=== PATIENT | male | born 1940 | race Caucasian/White ===

== ENCOUNTER 2020-04-03 11:34 | Outpatient (CLI) | payer OTHER, SELFPAY ==
--- NOTE | ~2020-04-03 | XR_ITS ---
EXAMINATION: XR hand BI arthritis min 3V DATE: 04/03/2020 12:12 INDICATION: Rheumatoid arthritis with rheumatoid factor of multiple sites. TECHNIQUE: 4 views of right hand and 4 views of left hand on a total of 7 radiographs were obtained. COMPARISON: None. FINDINGS: RIGHT HAND: There is palmar subluxation of second and third proximal phalanges with respect to the me tacarpals. There is palmar dislocation of third-fifth proximal phalanges with respect to the metacarp als. There is radial subluxation of second and fourth distal phalanges with respect to the middle pha langes. There is abnormal flexion of fourth distal interphalangeal joint. There is scapholunate disso ciation. There are erosions of the distal radioulnar joint and radiocarpal joint with severe joint sp robert narrowing of radioscaphoid joint. There is proximal migration of capitate between lunate and scap hoid. Capitate articulates with the distal radius. 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 A lytic lesion in base of second metacarpal may be a subchondral cyst or erosion. There are osteophyt es at all of the metacarpophalangeal joints. There is severe osteoarthritis of second and fourth dist al interphalangeal joints and mild to moderate osteoarthritis of the other interphalangeal joints. LEFT HAND: There is palmar subluxation of the first-fifth proximal phalanges with respect to the meta carpals. There is radial subluxation of third and fourth distal phalanges with respect to the middle phalanges. There is moderate osteoarthritis of distal radioulnar joint. There is severe joint space n arrowing at radiolunate joint. There is severe osteoarthritis of first carpometacarpal joint. There a re osteophytes at all the metacarpophalangeal joints. There is severe osteoarthritis of third and fou rth distal interphalangeal joints and mild to moderate osteoarthritis of all of the other interphalan geal joints. IMPRESSION: 1. Polyarticular arthritis, consistent with combination of rheumatoid arthritis and osteoarthritis. Reviewed, dictated and finalized at location A. RELL OPERATOR
--- NOTE | ~2020-04-03 | XR_ITS ---
XR foot RT standing 2V, XR foot LT standing 2V 04/03/2020 12:12 Indication: Rheumatoid arthritis Procedure: 2 views of each foot Comparison: No prior studies for comparison. Findings: Right foot: There is mild osteoarthritis of the first MTP and IP joints. No erosive changes . Lisfranc joint intact. No focal soft tissue abnormality. No foreign bodies. Mild degenerative medina es of the midfoot. Left foot: Mild polyarticular osteoarthritis of the first MTP and IP joints as well as the second PIP joint. Mild osteoarthritis of the midfoot. Osteopenia. No marginal erosions. No significant soft tis amanda abnormality.. Impression: 1: Mild polyarticular osteoarthritis. No erosive changes to suggest inflammatory arthropathy. Reviewed, dictated and finalized at location A. SEMAKING LABORER Impression: 1: Mild polyarticular osteoarthritis. No erosive changes to suggest inflammator y arthropathy. Impression: 1: Mild polyarticular osteoarthritis. No erosive changes to suggest inflammator y arthropathy.
== END 2020-04-03 11:35 | disposition home or self-care (01) ==
PROVIDERS: PCP Family Medicine; Visit Provider Internal Medicine
DX: M05.79 Rheumatoid arthritis with rheumatoid factor of multiple sites without organ or systems involvement (principal); M19.041 Primary osteoarthritis, right hand; M19.042 Primary osteoarthritis, left hand; M19.071 Primary osteoarthritis, right ankle and foot; M19.072 Primary osteoarthritis, left ankle and foot
CPT/HCPCS: 73130; 73620